=== PATIENT | male | born 1975 | race Caucasian/White ===

== ENCOUNTER → 2017-01-12 12:49 | Outpatient (CLI) | payer BC | END | disposition home or self-care (01) | LOC: D.MRI 01-11 15:00 → D.ECHO 12:49 → D.MRI 14:30 | DX: I63.139 Cerebral infarction due to embolism of unspecified carotid artery (principal) ==

== ENCOUNTER → 2017-01-28 12:14 | Outpatient (CLI) | payer BC | END | disposition home or self-care (01) | LOC: D.MRI 01-18 15:00 | DX: I63.139 Cerebral infarction due to embolism of unspecified carotid artery (principal) ==